=== PATIENT | male | born 1955 | race Caucasian/White ===

== ENCOUNTER → 2017-08-24 | Outpatient (CLI) | payer BC ==
--- NOTE | 2017-08-24 15:44 | US ---
EXAMINATION TYPE: US kidneys/renal and bladder DATE OF EXAM: 08/24/2017 COMPARISON: NONE CLINICAL HISTORY: R94.4 ABN Renal Function. no prior issues EXAM MEASUREMENTS: Right Kidney: 11.4 x 4.8 x 4.2 cm Left Kidney: 11.0 x 5.6 x 4.1 cm Right Kidney: wnl Left Kidney: wnl Bladder: indented inferiorly from somewhat lobular prostate, otherwise wnl Bilateral Jets seen: no There is no evidence for hydronephrosis at this point in time. No nephrolithiasis is seen. No carlton s are identified. The urinary bladder is anechoic. Cortical medullary differentiation maintained within the kidneys. There is no evident ascites. IMPRESSION: Normal renal ultrasound. There may be prostate enlargement.
== END | disposition home or self-care (01) ==
LOC: RADUSWWP 15:01
PROVIDERS: ATTEND Family Medicine
DX: R94.4 Abnormal results of kidney function studies (principal)
CPT/HCPCS: 76770

== ENCOUNTER 2018-07-21 09:52 | Day surgery (SDC) | payer BC ==
[2018-07-19 13:03] VITALS: BMI 26.2
--- NOTE | 2018-07-21 08:04 | P.GSHP ---
History of Present Illness H&P Date: 07/21/18 CHIEF COMPLAINT: Colon screen HISTORY OF PRESENT ILLNESS: The patient is a 63-year-old male who presents for colon screen. Lower endoscopy was offered for further evaluation and management. PAST MEDICAL HISTORY: Please see list. PAST SURGICAL HISTORY: Please see list. MEDICATIONS: Please see list. ALLERGIES: Please see list. SOCIAL HISTORY: No illicit drug use FAMILY HISTORY: No reports of Crohn disease or ulcerative colitis. REVIEW OF ORGAN SYSTEMS: CONSTITUTIONAL: No reports of fevers or chills. PHYSICAL EXAM: VITAL SIGNS: Stable GENERAL: Well-developed pleasant in no acute distress. HEENT: No scleral icterus. Extraocular movements grossly intact. Moist buccal mucosa. NECK: Supple without lymphadenopathy. CHEST: Unlabored respirations. Equal bilateral excursions. CARDIOVASCULAR: Regular rate and rhythm. Distal 2+ pulses. ABDOMEN: Soft, nontender, nondistended. MUSCULOSKELETAL: No clubbing, cyanosis, or edema. ASSESSMENT: 1. Colon screen. PLAN: 1. Recommend proceeding with a lower endoscopy Past Medical History Past Medical History: Hyperlipidemia, Hypertension, Thyroid Disorder Additional Past Medical History / Comment(s): hx. gout History of Any Multi-Drug Resistant Organisms: None Reported Past Surgical History: Appendectomy, Tonsillectomy Additional Past Surgical History / Comment(s): colonoscopy Past Anesthesia/Blood Transfusion Reactions: No Reported Reaction Smoking Status: Never smoker - Past Family History Mother Family Medical History: No Reported History Medications and Allergies Home Medications Medication Instructions Recorded Confirmed Type Allopurinol [Zyloprim] 300 mg PO DAILY 07/19/18 07/19/18 History Atorvastatin [Lipitor] 10 mg PO DAILY 07/19/18 07/19/18 History Cholecalciferol [Vitamin D3] 1,000 unit PO DAILY 07/19/18 07/19/18 History Ferrous Sulfate [Feosol] 325 mg PO DAILY 07/19/18 07/19/18 History Fosinopril Sodium [Monopril] 20 mg PO DAILY 07/19/18 07/19/18 History Ibuprofen [Motrin] 800 mg PO Q6H PRN 07/19/18 07/19/18 History Levothyroxine Sodium [Synthroid] 112 mcg PO DAILY 07/19/18 07/19/18 History Multivitamins, Thera [Multivitamin 1 tab PO DAILY 07/19/18 07/19/18 History (formulary)] Allergies Allergy/AdvReac Type Severity Reaction Status Date / Time Penicillins Allergy Rash/Hives Verified 07/19/18 12:36
[~2018-07-21 09:52] MED LIST: LACTATED RINGERS 1,000 ML IV SCH; LIDOCAINE 1% 20 ML VIAL (10MG/ML) FOR IV START INTRADERMA PRN
[2018-07-21 10:14] VITALS: TEMP 98.1
[2018-07-21] MEDS ORDERED: PROPOFOL 10 MG/ML 20 ML VIAL IV ONE (10:34)
[2018-07-21] MEDS ORDERED: LIDOCAINE 1% INJ 10MG/ML (20 ML MDV) ONE (10:34)
--- NOTE | 2018-07-21 10:59 | P.PCN ---
Date of Procedure: 07/21/18 Description of Procedure: PREOPERATIVE DIAGNOSIS: Colonoscopy screening POSTOPERATIVE DIAGNOSIS: Colonoscopy screening Colon polyp along cecum Colon polyp along the transverse colon OPERATION: Colonoscopy to the ileocecal valve and appendiceal orifice. Colonoscopy with multiple cold forceps biopsies. SURGEON: Deedee Hutson MD. ANESTHESIA: MAC. INDICATIONS: The patient is a 63-year-old male who presents for colonoscopy screening. Last colonoscopy 10 years ago. Benefits and risks were described and informed consent was obtained. DESCRIPTION OF PROCEDURE: The patient had undergone Gatorade, MiraLAX and Dulcolax prep. He had been brought into the operating room and laid in the left lateral decubitus position. After adequate intravenous sedation, the rectum was examined with 2% lidocaine jelly. No external hemorrhoids were encountered. The rectal tone was within normal limits. No lesions were palpated in the rectal vault. An Olympus colonoscope was advanced until the ileocecal valve and appendiceal orifice were clearly viewed. The prep was fair with visualization of the mucosal folds. The scope was removed with visualization of each mucosal fold. No scattered diverticulosis was encountered. Multiple colonic polyps were found and cold forcep biopsy. No evidence of focal colitis was found. Retroflexion of the scope demonstrated grade no internal hemorrhoids without active bleeding or inflammation. The colon was desufflated. The patient had tolerated the procedure well. Withdrawal time was over 6 minutes. FINDINGS: [place]ronch[place] preparation quality scale 2 (1-5) No internal hemorrhoids No external hemorrhoids No arteriovenous malformations. Removal of 2 polyps: - Cold forceps biopsy at mid transverse colon, 5 mm polyp. - Cold forceps biopsy at cecum, 4 mm polyp. No focal colitis. RECOMMENDATIONS: Recommend repeat colonoscopy 5 years, 2023 Plan - Discharge Summary Discharge Rx Participant: No New Discharge Prescriptions: No Action Multivitamins, Thera [Multivitamin (formulary)] 1 tab PO DAILY Cholecalciferol [Vitamin D3] 1,000 unit PO DAILY Levothyroxine Sodium [Synthroid] 112 mcg PO DAILY Ferrous Sulfate [Feosol] 325 mg PO DAILY Atorvastatin [Lipitor] 10 mg PO DAILY Fosinopril Sodium [Monopril] 20 mg PO DAILY Allopurinol [Zyloprim] 300 mg PO DAILY Ibuprofen [Motrin] 800 mg PO Q6H PRN PRN Reason: Pain Discharge Medication List Allopurinol [Zyloprim] 300 mg PO DAILY 07/19/18 [History] Atorvastatin [Lipitor] 10 mg PO DAILY 07/19/18 [History] Cholecalciferol [Vitamin D3] 1,000 unit PO DAILY 07/19/18 [History] Ferrous Sulfate [Feosol] 325 mg PO DAILY 07/19/18 [History] Fosinopril Sodium [Monopril] 20 mg PO DAILY 07/19/18 [History] Ibuprofen [Motrin] 800 mg PO Q6H PRN 07/19/18 [History] Levothyroxine Sodium [Synthroid] 112 mcg PO DAILY 07/19/18 [History] Multivitamins, Thera [Multivitamin (formulary)] 1 tab PO DAILY 07/19/18 [History] Follow up Appointment(s)/Referral(s): Deedee Hutson MD [STAFF PHYSICIAN] - As Needed Patient Instructions/Handouts: Colorectal Polyps (DC), *Surgery [facility] - (Anesthesia) Endoscopy Discharge Instructions Activity/Diet/Wound Care/Special Instructions: Repeat colonoscopy in 5 years2023 Discharge Disposition: HOME SELF-CARE
[2018-07-21 11:02] VITALS: BP 134/82; PULSE 73; RESP 16
== END 2018-07-21 11:27 | disposition home or self-care (01) ==
LOC: ORWHC2ENDO 09:52
PROVIDERS: ATTEND Surgery Plastic and Reconstructive Surgery
DX: Z12.11 Encounter for screening for malignant neoplasm of colon (principal); K63.5 Polyp of colon; E78.5 Hyperlipidemia, unspecified; I10 Essential (primary) hypertension; E07.9 Disorder of thyroid, unspecified; M10.9 Gout, unspecified; Z79.890 Hormone replacement therapy; Z79.899 Other long term (current) drug therapy; Z88.0 Allergy status to penicillin
CPT/HCPCS: 88305; 45380; J2001; J2704

== ENCOUNTER 2020-08-08 13:20 | Emergency (ER) | payer BC, MEDICARE ==
[2020-08-08 13:48] VITALS: BP 113/74; PULSE 78; RESP 18; TEMP 98.2
--- NOTE | 2020-08-08 14:38 | XR ---
EXAMINATION TYPE: XR tibia fibula LT DATE OF EXAM: 08/08/2020 COMPARISON: NONE HISTORY: Pain TECHNIQUE: Two views are submitted. FINDINGS: The osseous structures are intact. The joint spaces are preserved. IMPRESSION: 1. No acute osseous abnormality.
--- NOTE | 2020-08-08 14:52 | ED ---
Lower Extremity Injury HPI - General Chief Complaint: Extremity Injury, Lower Stated Complaint: ankle pain Time Seen by Provider: 08/08/20 14:05 Source: patient Mode of arrival: ambulatory Limitations: no limitations - History of Present Illness Initial Comments: 65yo male presenting for cc of left lower posterior leg pain. Pt states he was playing pickle ball when he heard a pop and felt like he was kicked in the back of his calf. Patient states he is able to walk in his foot. he states it is tender but not super painful. he noted swelling hebind right ankle. no additional complaints. denies falling to ground, denies foot or knee pain. pt appears well nontoxic in no acute distress. - Related Data Home Medications Medication Instructions Recorded Confirmed Atorvastatin [Lipitor] 10 mg PO DAILY 07/19/18 07/21/18 Cholecalciferol [Vitamin D3] 1,000 unit PO DAILY 07/19/18 07/21/18 Ferrous Sulfate [Feosol] 325 mg PO DAILY 07/19/18 07/21/18 Fosinopril Sodium [Monopril] 20 mg PO DAILY 07/19/18 07/21/18 Ibuprofen [Motrin] 800 mg PO Q6H PRN 07/19/18 07/21/18 Levothyroxine Sodium [Synthroid] 112 mcg PO DAILY 07/19/18 07/21/18 Multivitamins, Thera [Multivitamin 1 tab PO DAILY 07/19/18 07/21/18 (formulary)] allopurinoL [Zyloprim] 300 mg PO DAILY 07/19/18 07/21/18 Allergies Allergy/AdvReac Type Severity Reaction Status Date / Time Penicillins Allergy Rash/Hives Verified 08/08/20 13:45 Review of Systems ROS Statement: Those systems with pertinent positive or pertinent negative responses have been documented in the HPI. ROS Other: All systems not noted in ROS Statement are negative. Past Medical History Past Medical History: Hyperlipidemia, Hypertension, Thyroid Disorder Additional Past Medical History / Comment(s): hx. gout History of Any Multi-Drug Resistant Organisms: None Reported Past Surgical History: Appendectomy, Tonsillectomy Additional Past Surgical History / Comment(s): colonoscopy Past Anesthesia/Blood Transfusion Reactions: No Reported Reaction Past Psychological History: No Psychological Hx Reported Smoking Status: Never smoker Past Alcohol Use History: Occasional Past Drug Use History: None Reported - Past Family History Mother Family Medical History: No Reported History General Exam - General Exam Comments Initial Comments: General: The patient is awake and alert, in no distress Eye: +3 mm pupils are equal, round and reactive to light, extra-ocular movements are intact. No nystagmus. There is normal conjunctiva bilaterally. No signs of icterus. Ears, nose, mouth and throat: There are moist mucous membranes and no oral lesions. Neck: The neck is supple, there is no tenderness or JVD. Cardiovascular: There is a regular rate and rhythm. No murmur, rub or gallop is appreciated. Respiratory: Lungs are clear to auscultation, respirations are non-labored, breath sounds are equal. No wheezes, stridor, rales, or rhonchi. Gastrointestinal: Soft, non-distended, non-tender abdomen without masses or organomegaly noted. There is no rebound or guarding present. Musculoskeletal: bogginess with no palpable achilles cord with palpation of distal left lower leg. Normal ROM, no tenderness. Strength 5/5. Sensation intact. Radial pulses equal bilaterally 2+. Neurological: A&O x 3. CN II-XII intact grossly, There are no obvious motor or sensory deficits. Coordination appears grossly intact. Speech is normal. Skin: Skin is warm and dry and no rashes or lesions are noted. Psychiatric: Cooperative, appropriate mood & affect, normal judgment. Limitations: no limitations Course Vital Signs 08/08/20 13:46 Temperature 98.2 F Pulse Rate 78 Respiratory 18 Rate Blood Pressure 113/74 O2 Sat by Pulse 97 Oximetry Medical Decision Making - Medical Decision Making XR (-). high suspicion for achilles tendon rupture. no muscle belly palpable. but boddy/no cord appreciated. pt splinted in slight planar flexion. prvded crtuches and is aware of the importance of follow-up with orthopedic surgery he stumbles his appointment while in the [facility] for [facility]. Patient discharged appearing well attending agreeable to care plan. Disposition Clinical Impression: Achilles tendon rupture, Left ankle pain Disposition: HOME SELF-CARE Condition: Good Instructions (If sedation given, give patient instructions): Achilles Tendon Rupture (ED) Additional Instructions: Please use medication as discussed. Please follow-up with orthopedic surgery in the next 2 days, use crutches for ambulation and keep splint in place. Please return to emergency room if the symptoms increase or worsen or for any other concerns. Is patient prescribed a controlled substance at d/c from ED?: No Referrals: Pierre Hernández MD [Primary Care Provider] - 1-2 days Clemencia Le DO [Doctor of Osteopathic Medicine] - 1-2 days Time of Disposition: 14:51
== END 2020-08-08 15:28 | disposition home or self-care (01) ==
LOC: EC 13:20
DX: S86.012A Strain of left Achilles tendon, initial encounter (principal); E78.5 Hyperlipidemia, unspecified; I10 Essential (primary) hypertension; M10.9 Gout, unspecified; E07.9 Disorder of thyroid, unspecified; Z79.1 Long term (current) use of non-steroidal anti-inflammatories (NSAID); Z88.0 Allergy status to penicillin; Z79.890 Hormone replacement therapy
CPT/HCPCS: 99283

== ENCOUNTER → 2021-04-18 | Outpatient (CLI) | payer MEDICARE ==
--- NOTE | 2021-04-18 10:29 | XR ---
EXAMINATION TYPE: XR lumbar spine 2 or 3V DATE OF EXAM: 04/18/2021 CLINICAL HISTORY: Low back pain TECHNIQUE: Frontal and lateral images of the lumbar spine are obtained. COMPARISON: None FINDINGS: There are 6 lumbar type vertebral bodies identified. There is levoconvex scoliosis centere d at L2-L3 level. Moderate disc space narrowing with endplate sclerosis and moderate spurring right L 2-L3 level. Mild to moderate disc space narrowing with vacuum disc phenomenon at L6-S1 level. Vertebr al body heights are maintained. Facet arthropathy in the lower lumbar spine is present. Mild overlyin g arteriovascular calcification. IMPRESSION: As above.
== END | disposition home or self-care (01) ==
LOC: RADXRMAIN 09:53
PROVIDERS: ATTEND Family Medicine
DX: M47.816 Spondylosis without myelopathy or radiculopathy, lumbar region (principal); M41.86 Other forms of scoliosis, lumbar region; M51.87 Other intervertebral disc disorders, lumbosacral region
CPT/HCPCS: 72100

== ENCOUNTER 2021-09-07 09:51 | Emergency (ER) | payer MEDICARE ==
[2021-09-07 10:06] VITALS: TEMP 97.7
[2021-09-07] MEDS ORDERED: KETOROLAC 15 MG/ML 1 ML VIAL IM STA (11:20)
[2021-09-07] MEDS ORDERED: MORPHINE SULFATE 4 MG/ML SYRINGE IM STA ×2 (11:20→12:09)
[2021-09-07] MEDS ORDERED: TOBRAMYCIN 0.3% OPHTH OINT 3.5 GM TUBE LEFT EYE STA (11:36)
--- NOTE | 2021-09-07 11:36 | ED ---
General Adult HPI - General Chief complaint: Extremity Injury, Lower Stated complaint: Lt Hip Pain Time Seen by Provider: 09/07/21 11:10 Source: patient, family Mode of arrival: ambulatory Limitations: no limitations - History of Present Illness Initial comments: 66 year-old male patient presents to the emergency department with reports of left hip pain with radiation down the left leg. States he has been being treated for sciatica by Dr. Albarran pain management. States he has also been going to the chiropractor. States that today he was doing some stretches and his pain suddenly worsened. Did not hear or feel any pops or snaps. Reports increased pain with weight bearing and walking. States the pain is in his left lateral hip radiates down the lateral thigh and over the anterior gautam. States he does have chronic numbness and tingling in the left foot. Denies saddle anesthesia or loss of bowel or bladder control. Denies abdominal pain or back pain. Denies fever or chills. Denies skin color changes to the painful areas. Did have an MRI on 08/13/21. Has been taking tramadol and ibuprofen without relief. - Related Data Home Medications Medication Instructions Recorded Confirmed Atorvastatin [Lipitor] 10 mg PO DAILY 07/19/18 07/21/18 Cholecalciferol [Vitamin D3] 1,000 unit PO DAILY 07/19/18 07/21/18 Ferrous Sulfate [Feosol] 325 mg PO DAILY 07/19/18 07/21/18 Fosinopril Sodium [Monopril] 20 mg PO DAILY 07/19/18 07/21/18 Ibuprofen [Motrin] 800 mg PO Q6H PRN 07/19/18 07/21/18 Levothyroxine Sodium [Synthroid] 112 mcg PO DAILY 07/19/18 07/21/18 Multivitamins, Thera [Multivitamin 1 tab PO DAILY 07/19/18 07/21/18 (formulary)] allopurinoL [Zyloprim] 300 mg PO DAILY 07/19/18 07/21/18 Allergies Allergy/AdvReac Type Severity Reaction Status Date / Time Penicillins Allergy Rash/Hives Verified 09/07/21 10:02 Review of Systems ROS Statement: Those systems with pertinent positive or pertinent negative responses have been documented in the HPI. ROS Other: All systems not noted in ROS Statement are negative. Past Medical History Past Medical History: Hyperlipidemia, Hypertension, Thyroid Disorder Additional Past Medical History / Comment(s): hx. gout History of Any Multi-Drug Resistant Organisms: None Reported Past Surgical History: Appendectomy, Tonsillectomy Additional Past Surgical History / Comment(s): colonoscopy Past Anesthesia/Blood Transfusion Reactions: No Reported Reaction Past Psychological History: No Psychological Hx Reported Smoking Status: Never smoker Past Alcohol Use History: Occasional Past Drug Use History: None Reported - Past Family History Mother Family Medical History: No Reported History General Exam Limitations: no limitations General appearance: alert, in no apparent distress, other (This is a well- developed, well-nourished adult male in no acute distress.) Eye exam: Present: normal appearance, PERRL, EOMI. Absent: scleral icterus, conjunctival injection, periorbital swelling ENT exam: Present: normal exam, normal oropharynx, mucous membranes moist Respiratory exam: Present: normal lung sounds bilaterally. Absent: respiratory distress, wheezes, rales, rhonchi, stridor Cardiovascular Exam: Present: regular rate, normal rhythm, normal heart sounds. Absent: systolic murmur, diastolic murmur, rubs, gallop, clicks GI/Abdominal exam: Present: soft, normal bowel sounds. Absent: distended, tenderness, guarding, rebound, rigid Extremities exam: Present: normal inspection, full ROM, normal capillary refill, other (Skin to the left leg is pink, warm, dry. Cap refill less than 3 seconds. Pedal pulse tibial pulses 2+ to). Absent: tenderness, pedal edema, joint swelling, calf tenderness Back exam: Present: normal inspection. Absent: vertebral tenderness Neurological exam: Present: alert, oriented X3, CN II-XII intact Psychiatric exam: Present: normal affect, normal mood Skin exam: Present: warm, dry, intact, normal color. Absent: rash Course Vital Signs 09/07/21 10:02 Temperature 97.7 F Pulse Rate 69 Respiratory 16 Rate Blood Pressure 164/95 O2 Sat by Pulse 97 Oximetry Medical Decision Making - Medical Decision Making 66-year-old male patient presented to the emergency department today for evaluation of left hip pain with radiation down the left leg. Physical exami nation did reveal good neurovascular status of the left leg. No back pain or tenderness. No concerning symptoms for cauda equina. X-ray of the left hip and pelvis was obtained and showed no abnormalities other than mild degenerative changes of left hip. He was given IM morphine, Solu-Medrol, and Toradol. Upon reevaluation he is resting more comfortably. His symptoms are consistent with sciatica. He'll be discharged to follow-up with his bottom painter he does have injection procedure is scheduled for Thursday. I did give him a short course of [place] for improved pain relief. Return parameters were discussed in detail. He verbalizes understanding and agrees this plan. My attending is Dr. Goyal. - Radiology Data Radiology results: report reviewed, image reviewed 2 views of the left hip are obtained. Report was reviewed in its entirety. Impression by Dr. Castellano shows mild degenerative joint changes left hip. Disposition Clinical Impression: Sciatica, Left hip pain Disposition: HOME SELF-CARE Condition: Good Instructions (If sedation given, give patient instructions): Sciatica (ED), Hip Pain (ED) Additional Instructions: Take medications as directed. Continue Ibuprofen with meals. Start [place]. Do not take Tramadol with this. Follow up with pain specialist Dr. Albarran as planned. Return to the emergency department for any new, worsening, or concerning symptoms. Is patient prescribed a controlled substance at d/c from ED?: Yes When asked, does pt state using other controlled substances?: Yes If prescribed controlled substance>3 days was MAPS reviewed?: Yes If opioid is for acute pain is fill amount 7 days or less?: Yes If Rx opioid, was Start Talking consent form obtained?: Yes Referrals: Pierre Hernández MD [Primary Care Provider] - 1-2 days Time of Disposition: 12:44
[2021-09-07] MEDS ORDERED: methylPREDNISolone SOD SUCCI 125 MG/2 ML VIAL IM ONE (12:09)
--- NOTE | 2021-09-07 12:37 | XR ---
EXAMINATION TYPE: XR Hip LT and AP Pelvis DATE OF EXAM: 09/07/2021 COMPARISON: None HISTORY: Left hip pain TECHNIQUE: AP pelvis 2 views left hip FINDINGS: Right femoral head articulates with the acetabulum. Left femoral head articulates with the acetabulum. There is some left hip joint space narrowing. Symphysis pubis and sacroiliac joints are n ormal. No acute fractures or dislocations are evident. IMPRESSION: 1. Mild degenerative joint changes left hip
[2021-09-07 13:03] VITALS: BP 148/90; PULSE 72; RESP 18
== END 2021-09-07 13:02 | disposition home or self-care (01) ==
LOC: EC 09:51
DX: M54.32 Sciatica, left side (principal); E78.5 Hyperlipidemia, unspecified; I10 Essential (primary) hypertension; M10.9 Gout, unspecified; E07.9 Disorder of thyroid, unspecified; Z79.1 Long term (current) use of non-steroidal anti-inflammatories (NSAID); Z88.0 Allergy status to penicillin; Z90.49 Acquired absence of other specified parts of digestive tract; Z79.899 Other long term (current) drug therapy; Z79.890 Hormone replacement therapy
CPT/HCPCS: 73502; 99283; 96372; J2270; J2930; J1885

== ENCOUNTER 2024-06-23 11:12 | Day surgery (SDC) | payer MEDICARE ==
[2024-06-21 16:10] VITALS: BMI 25.1
--- NOTE | 2024-06-23 08:47 | P.GSHP ---
History of Present Illness H&P Date: 06/23/24 CHIEF COMPLAINT: Colon screen HISTORY OF PRESENT ILLNESS: The patient is a 69-year-old male who presents for colon screen. Lower endoscopy was offered for further evaluation and management. PAST MEDICAL HISTORY: Please see list. PAST SURGICAL HISTORY: Please see list. MEDICATIONS: Please see list. ALLERGIES: Please see list. SOCIAL HISTORY: No illicit drug use FAMILY HISTORY: No reports of Crohn disease or ulcerative colitis. REVIEW OF ORGAN SYSTEMS: CONSTITUTIONAL: No reports of fevers or chills. PHYSICAL EXAM: VITAL SIGNS: Stable GENERAL: Well-developed pleasant in no acute distress. HEENT: No scleral icterus. Extraocular movements grossly intact. Moist buccal mucosa. NECK: Supple without lymphadenopathy. CHEST: Unlabored respirations. Equal bilateral excursions. CARDIOVASCULAR: Regular rate and rhythm. Distal 2+ pulses. ABDOMEN: Soft, nontender, nondistended. MUSCULOSKELETAL: No clubbing, cyanosis, or edema. ASSESSMENT: 1. Colon screen. PLAN: 1. Recommend proceeding with a lower endoscopy Past Medical History Past Medical History: Hyperlipidemia, Hypertension, Thyroid Disorder Additional Past Medical History / Comment(s): hx. gout History of Any Multi-Drug Resistant Organisms: None Reported Past Surgical History: Appendectomy, Tonsillectomy Additional Past Surgical History / Comment(s): colonoscopy Past Anesthesia/Blood Transfusion Reactions: No Reported Reaction Smoking Status: Never smoker - Past Family History Mother Family Medical History: No Reported History Medications and Allergies Home Medications Medication Instructions Recorded Confirmed Type Atorvastatin [Lipitor] 10 mg PO DAILY 07/19/18 07/21/18 History Cholecalciferol [Vitamin D3] 1,000 unit PO DAILY 07/19/18 07/21/18 History Ferrous Sulfate [Feosol] 325 mg PO DAILY 07/19/18 07/21/18 History Fosinopril Sodium [Monopril] 20 mg PO DAILY 07/19/18 07/21/18 History Ibuprofen [Motrin] 800 mg PO Q6H PRN 07/19/18 07/21/18 History Levothyroxine Sodium [Synthroid] 112 mcg PO DAILY 07/19/18 07/21/18 History Multivitamins, Thera [Multivitamin 1 tab PO DAILY 07/19/18 07/21/18 History (formulary)] allopurinoL [Zyloprim] 300 mg PO DAILY 07/19/18 07/21/18 History Allergies Allergy/AdvReac Type Severity Reaction Status Date / Time latex Allergy Rash/Hives Verified 06/21/24 15:51 Penicillins Allergy Rash/Hives Verified 06/21/24 15:51
[~2024-06-23 11:12] MED LIST changes: -LACTATED RINGERS 1,000 ML IV SCH; +LIDOCAINE 1% (10MG/ML) FOR IV START INTRADERMA PRN; -LIDOCAINE 1% 20 ML VIAL (10MG/ML) FOR IV START INTRADERMA PRN
[2024-06-23] MEDS: IV FLUID CONTINUATION 1,000 ML IV ONE (11:58)
[2024-06-23 12:02] VITALS: TEMP 98
[2024-06-23] MEDS: LACTATED RINGERS 1,000 ML IV SCH (12:07)
[2024-06-23] MEDS ORDERED: PROPOFOL 10 MG/ML 20 ML VIAL IV ONE (12:11)
--- NOTE | 2024-06-23 12:44 | P.PCN ---
Date of Procedure: 06/23/24 Description of Procedure: PREOPERATIVE DIAGNOSIS: Personal history of colon polyps Colonoscopy screening POSTOPERATIVE DIAGNOSIS: Tubular adenoma cecum OPERATION: Colonoscopy to the ileocecal valve and appendiceal orifice, cecum Colonoscopy with hot snare polypectomy SURGEON: Deedee Hutson MD. ANESTHESIA: MAC. INDICATIONS: The patient is an 69-year-old male who presents personal history of colon polyps. Last colonoscopy 5 years. Benefits and risks were described and informed consent was obtained. DESCRIPTION OF PROCEDURE: The patient had undergone Suprep. The patient had been brought into the operating room and laid in the left lateral decubitus position. After adequate intravenous sedation, the rectum was examined with 2% lidocaine jelly. The prostate was unremarkable. External hemorrhoids were encountered. The rectal tone was within normal limits. No lesions were palpated in the rectal vault. An Olympus colonoscope was advanced until the cecum, ileocecal valve and appendiceal orifice were clearly viewed. The prep was excellent. No sigmoid diverticulosis was encountered. Colonic polyps were found and removed. No evidence of focal colitis was found. Retroflexion of the scope demonstrated grade 2 internal hemorrhoids without active bleeding or inflammation. The colon was desufflated. The patient had tolerated the procedure well. Withdrawal time was over 6 minutes. FINDINGS: Aronchick preparation quality scale 1 (1-5) Internal hemorrhoids, grade 1 External hemorrhoids, grade 1 No arteriovenous malformations. No sigmoid diverticulosis Highly redundant sigmoid colon requiring abdominal wall pressure Removal of 1 polyps: - Snare polypectomy at cecum, 5 mm tubulovillous adenoma No focal colitis. RECOMMENDATIONS: Repeat colonoscopy 3 years, 2027 Plan - Discharge Summary Discharge Rx Participant: Yes New Discharge Prescriptions: Continue Multivitamins, Thera [Multivitamin (formulary)] 1 tab PO DAILY Cholecalciferol [Vitamin D3 (25 Mcg = 1000 Iu)] 1,000 unit PO DAILY Levothyroxine Sodium [Synthroid] 112 mcg PO DAILY Ferrous Sulfate [Iron (65 MG Elemental)] 325 mg PO DAILY Atorvastatin [Lipitor] 10 mg PO DAILY Fosinopril Sodium [Monopril] 20 mg PO DAILY allopurinoL [Zyloprim] 300 mg PO DAILY Ibuprofen [Motrin] 800 mg PO Q6H PRN PRN Reason: Pain Discharge Medication List Atorvastatin [Lipitor] 10 mg PO DAILY 07/19/18 [History] Cholecalciferol [Vitamin D3 (25 Mcg = 1000 Iu)] 1,000 unit PO DAILY 07/19/18 [History] Ferrous Sulfate [Iron (65 MG Elemental)] 325 mg PO DAILY 07/19/18 [History] Fosinopril Sodium [Monopril] 20 mg PO DAILY 07/19/18 [History] Ibuprofen [Motrin] 800 mg PO Q6H PRN 07/19/18 [History] Levothyroxine Sodium [Synthroid] 112 mcg PO DAILY 07/19/18 [History] Multivitamins, Thera [Multivitamin (formulary)] 1 tab PO DAILY 07/19/18 [History] allopurinoL [Zyloprim] 300 mg PO DAILY 07/19/18 [History] Follow up Appointment(s)/Referral(s): Deedee Hutson MD [STAFF PHYSICIAN] - As Needed Patient Instructions/Handouts: Colorectal Polyps (GEN) Activity/Diet/Wound Care/Special Instructions: Repeat colonoscopy 3 years, 2027 Discharge Disposition: HOME SELF-CARE
[2024-06-23 12:50] VITALS: RESP 16
[2024-06-23 13:32] VITALS: BP 152/86; PULSE 59
[2024-06-23] MEDS: SIMETHICONE 80 MG CHEWABLE PO ONE (13:41)
== END 2024-06-23 13:52 | disposition home or self-care (01) ==
LOC: ORWHC2ENDO 11:12
PROVIDERS: ATTEND Surgery Plastic and Reconstructive Surgery
DX: Z12.11 Encounter for screening for malignant neoplasm of colon (principal); D12.0 Benign neoplasm of cecum; K64.0 First degree hemorrhoids; K64.4 Residual hemorrhoidal skin tags; K63.89 Other specified diseases of intestine; Z86.0100 Personal history of colon polyps, unspecified; E78.5 Hyperlipidemia, unspecified; I10 Essential (primary) hypertension; K21.9 Gastro-esophageal reflux disease without esophagitis; E07.9 Disorder of thyroid, unspecified; M10.9 Gout, unspecified; Z90.49 Acquired absence of other specified parts of digestive tract; Z90.89 Acquired absence of other organs; Z79.899 Other long term (current) drug therapy; Z88.0 Allergy status to penicillin; Z91.040 Latex allergy status
CPT/HCPCS: 88305; 45385; J2704